=== PATIENT | female | born 1945 | race African-American/Black ===

== ENCOUNTER 2017-10-10 21:22 | Emergency (ER) | payer MEDICARE, OTHER ==
[~2017-10-10] VITALS: Ht 170.2 cm; Wt 73.5 kg
[~2017-10-10 21:22] MED LIST: AMIT50 PO; CYCL5TAB PO; FURO1TAB93 PO; OMEP40CA2 PO; SIMV40 PO; SITA100 PO; SYNT25TA PO; TRAM50TA PO
[2017-10-10 21:35] VITALS: BP 98/57; PULSE 83; RESP 18; TEMP 97.3; O2SAT 96
[2017-10-10] MEDS ORDERED: SODIUM CHLOR 0.9% 1000 ML INJ 1,000 ML IV ONE (22:00)
--- NOTE | 2017-10-10 22:04 | PD ---
HPI Chief Complaint: Medical Clearance Time Seen by Provider: 21:49 Travel History International Travel<30 days: No Contact w/Intl Traveler<30days: No Traveled to known affect area: No History of Present Illness HPI 72 y/o female presents with her daughter with concern that since August 12 she has had a change where she will not eat or talk and it is gotten to the point where she can get her to eat or drink anything over the past couple of days. She states she has not heard her mother say any coherent word since August 12. She states she used to be able to give her liquids and pured food but now she cannot get her anything other than a couple sips in the morning. The patient will not talk with me so history is obtained from the daughter. The daughter states that she has not been able to get an to the patient's primary care physician. History is significantly limited. PFSH Past Medical History Asthma: No Autoimmune Disease: No Heart Rhythm Problems: No High Cholesterol: Yes Chest Pain: No Congestive Heart Failure: No COPD: No Cerebrovascular Accident: Yes (TIA DECEMBER 2015) Diabetes: Yes Patient Takes Glucophage: Yes Diminished Hearing: No Diverticulitis: Yes GERD: No Glaucoma: No Headaches: Yes Hepatitis: No Hiatal Hernia: No Hypertension: Yes Kidney Stones: No Musculoskeletal: Yes (OSTEOPOROSIS) Myocardial Infarction: No Renal Failure: No Seizures: Yes Sleep Apnea: No Thyroid Disease: Yes Ulcer: No Past Surgical History Abdominal Surgery: No AICD: No Appendectomy: Yes Cardiac Surgery: No Cholecystectomy: Yes Ear Surgery: No Endocrine Surgery: No Eye Surgery: No Genitourinary Surgery: No Gynecologic Surgery: Yes Hysterectomy: Yes Neurologic Surgery: Yes Oral Surgery: No Pacemaker: No Thoracic Surgery: No Other Surgery: Yes Social History Alcohol Use: No Tobacco Use: No Substance Use: No Allergies-Medications (Allergen,Severity, Reaction): Coded Allergies: No Known Allergies (Verified Adverse Reaction, Unknown, 10/10/17) Reported Meds & Prescriptions Reported Meds & Active Scripts Active Reported Trazodone (Trazodone HCl) 150 Mg Tablet 150 Mg PO HS Simvastatin 40 Mg Tab 40 Mg PO HS Divalproex ER (Divalproex Sodium) 500 Mg Tab 500 Mg PO BID Ibuprofen 600 Mg Tab 600 Mg PO Q6H PRN Metformin (Metformin HCl) 500 Mg Tab 500 Mg PO BIDPC Metoprolol Tartrate 25 Mg Tab 25 Mg PO BID Aspirin 81 Mg Chew 81 Mg CHEW DAILY Januvia (Sitagliptin Phosphate) 100 Mg Tab 100 Mg PO DAILY Omeprazole 40 Mg Cap 40 Mg DAILY Review of Systems Except as stated in HPI: all other systems reviewed are Neg Physical Exam Narrative GENERAL: 72 y/o female in no apparent distress SKIN: Focused skin assessment warm/dry. HEAD: Atraumatic. Normocephalic. EYES: Pupils pinpoint. No scleral icterus. No injection or drainage. ENT: No nasal bleeding or discharge. Mucous membranes pink and moist. NECK: Trachea midline. No JVD. CARDIOVASCULAR: Regular rate and rhythm. RESPIRATORY: No accessory muscle use. Clear to auscultation. Breath sounds equal bilaterally. GASTROINTESTINAL: Abdomen soft, nondistended. MUSCULOSKELETAL: No obvious deformities. No clubbing. No cyanosis. No edema. NEUROLOGICAL: Awake. moves extremities, non verbal Data Data Last Documented VS Vital Signs Date Time Temp Pulse Resp B/P (MAP) Pulse Ox O2 Delivery O2 Flow Rate FiO2 10/11/17 00:46 10/11/17 00:00 77 18 97 Room Air 10/10/17 21:35 97.3 Orders Orders Magnesium (Mg) (10/10/17 21:56) Phosphorus (Po4) (10/10/17 21:56) Complete Blood Count With Diff (10/10/17 21:56) Comprehensive Metabolic Panel (10/10/17 21:56) Urinalysis - C+S If Indicated (10/10/17 21:56) Act Partial Throm Time (Ptt) (10/10/17 21:56) Prothrombin Time / Inr (Pt) (10/10/17 21:56) Ct Brain W/O Iv Contrast(Rout) (10/10/17 ) Chest, Single Ap (10/10/17 ) Electrocardiogram (10/10/17 ) Iv Access Insert/Monitor (10/10/17 21:56) Ecg Monitoring (10/10/17 21:56) Oximetry (10/10/17 21:56) Sodium Chlor 0.9% 1000 Ml Inj (Ns 1000 M (10/10/17 22:00) Oral Rehydration (10/11/17 00:01) Ed Discharge Order (10/11/17 00:09) Labs Laboratory Tests Test 10/10/17 22:51 10/10/17 23:30 White Blood Count 4.1 TH/MM3 Red Blood Count 4.39 MIL/MM3 Hemoglobin 12.8 GM/DL Hematocrit 38.2 % Mean Corpuscular Volume 87.0 FL Mean Corpuscular Hemoglobin 29.2 PG Mean Corpuscular Hemoglobin Concent 33.6 % Red Cell Distribution Width 17.9 % Platelet Count 203 TH/MM3 Mean Platelet Volume 7.9 FL Neutrophils (%) (Auto) 52.7 % Lymphocytes (%) (Auto) 39.6 % Monocytes (%) (Auto) 6.1 % Eosinophils (%) (Auto) 1.2 % Basophils (%) (Auto) 0.4 % Neutrophils # (Auto) 2.2 TH/MM3 Lymphocytes # (Auto) 1.6 TH/MM3 Monocytes # (Auto) 0.3 TH/MM3 Eosinophils # (Auto) 0.1 TH/MM3 Basophils # (Auto) 0.0 TH/MM3 CBC Comment DIFF FINAL Differential Comment Prothrombin Time 11.2 SEC Prothromb Time International Ratio 1.1 RATIO Activated Partial Thromboplast Time 24.0 SEC Blood Urea Nitrogen 24 MG/DL Creatinine 1.71 MG/DL Random Glucose 81 MG/DL Total Protein 7.7 GM/DL Albumin 3.8 GM/DL Calcium Level 9.4 MG/DL Phosphorus Level 3.0 MG/DL Magnesium Level 1.8 MG/DL Alkaline Phosphatase 34 U/L Aspartate Amino Transf (AST/SGOT) 17 U/L Alanine Aminotransferase (ALT/SGPT) 12 U/L Total Bilirubin 0.2 MG/DL Sodium Level 139 MEQ/L Potassium Level 3.4 MEQ/L Chloride Level 102 MEQ/L Carbon Dioxide Level 26.1 MEQ/L Anion Gap 11 MEQ/L Estimat Glomerular Filtration Rate 36 ML/MIN Urine Color YELLOW Urine Turbidity CLEAR Urine pH 6.0 Urine Specific [place] 1.022 Urine Protein TRACE mg/dL Urine Glucose (UA) NEG mg/dL Urine Ketones 10 mg/dL Urine Occult Blood NEG Urine Nitrite NEG Urine Bilirubin NEG Urine Urobilinogen 2.0 MG/DL Urine Leukocyte Esterase SMALL Urine WBC 4 /hpf Urine Squamous Epithelial Cells 1 /hpf Urine Hyaline Casts 4 /lpf Urine Mucus FEW /lpf Microscopic Urinalysis Comment CATH-CULT NOT IND MDM Medical Decision Making Medical Screen Exam Complete: Yes Emergency Medical Condition: Yes Medical Record Reviewed: Yes (pmh confirmed) Interpretation(s) CBC & BMP Diagram 10/10/17 22:51 Total Protein 7.7, Albumin 3.8, Calcium Level 9.4, Phosphorus Level 3.0, Magnesium Level 1.8, Alkaline Phosphatase 34 L, Aspartate Amino Transf (AST/SGOT ) 17, Alanine Aminotransferase (ALT/SGPT) 12, Total Bilirubin 0.2 Differential Diagnosis Acute renal failure, UTI, electrolyte abnormality Narrative Course We will check blood work, urinalysis, CT brain and reevaluate ed workup with mild increase in renal function from baseline. Patient able to tolerate oral hydration here. patient appears to have progression of her dementia Discussed with daughter and she agrees to have her follow closely with primary care physician for additional testing. Given return instructions. Diagnosis Primary Impression: Renal insufficiency Additional Impression: Decrease in appetite Patient Instructions: General Instructions Additional Instructions: return as needed, follow with primary friday Med/Other Pt SpecificInfo: No Change to Meds Disposition: 01 DISCHARGE HOME Condition: Stable Lorrie Marroquin MD Oct 10, 2017 22:04
[2017-10-10 22:19] VITALS: BP 95/53; PULSE 82; RESP 18; O2SAT 98
[2017-10-10] MEDS ORDERED: SIMV40TA PO (22:22)
[2017-10-10] MEDS ORDERED: SITA1TAB2 PO (22:22)
[2017-10-10] MEDS ORDERED: OMEP40CA2 (22:22)
[2017-10-10] MEDS ORDERED: METF500T PO (22:22)
[2017-10-10] MEDS ORDERED: TRAZ1TAB14 PO (22:22)
[2017-10-10] MEDS ORDERED: METO25TA3 PO (22:22)
[2017-10-10] MEDS ORDERED: IBUP-232 PO (22:22)
[2017-10-10] MEDS ORDERED: DIVA500T3 PO (22:22)
[2017-10-10] MEDS ORDERED: ASPI-516 CHEW (22:22)
--- NOTE | 2017-10-10 23:03 | RADRPT ---
EXAM DATE/TIME: 10/10/2017 22:17 [facility] COMPARISON: No previous studies available for comparison. INDICATIONS : Shortness of breath and palpitations. MEDICAL HISTORY : None. SURGICAL HISTORY : None. ENCOUNTER: Initial ACUITY: 1 day PAIN SCORE: Non-responsive. LOCATION: chest FINDINGS: A single view of the chest demonstrates the lungs to be symmetrically aerated without evidence of mas s, infiltrate or effusion. The cardiomediastinal contours are unremarkable. Osseous structures are intact. CONCLUSION: The lungs are clear. Niko Butler MD on October 10, 2017 at 23:02 Board Certified Radiologist. This report was verified electronically.
[2017-10-10 23:18] LABS: AUTOMATED NEUTROPHIL # 2.2 TH/MM3 (1.8-7.7); BASOPHIL % 0.4 % (0.0-2.0); EOSINOPHIL # 0.1 TH/MM3 (0-0.4); EOSINOPHIL % 1.2 % (0.0-4.0); HEMATOCRIT 38.2 % (35.0-46.0); HEMOGLOBIN 12.8 GM/DL (11.6-15.3); LYMPH % 39.6 % (9.0-44.0); LYMPHOCYTE # 1.6 TH/MM3 (1.0-4.8); MEAN CORPUSCULAR HEMOGLOBIN 29.2 PG (27.0-34.0); MEAN CORPUSCULAR HGB CONC 33.6 % (32.0-36.0); MEAN PLATELET VOLUME 7.9 FL (7.0-11.0); MONO % 6.1 % (0.0-8.0); MONOCYTE # 0.3 TH/MM3 (0-0.9); NEUT % 52.7 % (16.0-70.0); PLATELET COUNT 203 TH/MM3 (150-450); RED BLOOD COUNT 4.39 MIL/MM3 (4.00-5.30); RED CELL DISTRIBUTION WIDTH 17.9 % (11.6-17.2); WHITE BLOOD COUNT 4.1 TH/MM3 (4.0-11.0)
[2017-10-10 23:22] LABS: ALBUMIN 3.8 GM/DL (3.4-5.0); ALT (GPT) 12 U/L (10-53); AST (GOT) 17 U/L (15-37); BICARBONATE 26.1 MEQ/L (21.0-32.0); BLOOD UREA NITROGEN 24 MG/DL (7-18); CALCIUM 9.4 MG/DL (8.5-10.1); CHLORIDE 102 MEQ/L (98-107); CREATININE 1.71 MG/DL (0.50-1.00); GLOMERULAR FILTRATION RATE 36 ML/MIN (>89); GLUCOSE,RANDOM 81 MG/DL (74-106); MAGNESIUM 1.8 MG/DL (1.5-2.5); SODIUM (NA) 139 MEQ/L (136-145)
[2017-10-10 23:24] LABS: ALKALINE PHOSPHATASE 34 U/L (45-117); TOTAL BILIRUBIN ADULT 0.2 MG/DL (0.2-1.0); TOTAL PROTEIN 7.7 GM/DL (6.4-8.2)
[2017-10-10 23:32] LABS: INTERNATIONAL NORMALIZED RATIO 1.1 RATIO; PROTHROMBIN TIME - PATIENT 11.2 SEC (9.8-11.6)
--- NOTE | 2017-10-10 23:42 | RADRPT ---
EXAM DATE/TIME: 10/10/2017 23:01 [facility] COMPARISON: CT BRAIN W/O CONTRAST, March 06, 2016, 17:00. INDICATIONS : Altered mental status. RADIATION DOSE: 52.13 CTDIvol (mGy) ; Patient motion MEDICAL HISTORY : Hypertension. Seizures. Diverticulitis.TIA. Diabetes. SURGICAL HISTORY : Appendectomy. Cholecystectomy.Hysterectomy.Lumbar surgery. Cervical spine surgery. ENCOUNTER: Initial ACUITY: 1 day PAIN SCALE: 0/10 LOCATION: cranial TECHNIQUE: Multiple contiguous axial images were obtained of the head. Using automated exposure control and adj ustment of the mA and/or kV according to patient size, radiation dose was kept as low as reasonably a chievable to obtain optimal diagnostic quality images. DICOM format image data is available electro nically for review and comparison. FINDINGS: CEREBRUM: The ventricles are normal for age. Mild decreased attenuation in the periventricular white matter is similar in appearance to prior CT in 2016. No evidence of midline shift, mass lesion, hemorrhage or acute infarction. No extra-axial fluid collections are seen. POSTERIOR FOSSA: The cerebellum and brainstem are intact. The 4th ventricle is midline. The cerebellopontine angle i s unremarkable. EXTRACRANIAL: The visualized portion of the orbits is intact. SKULL: The calvaria is intact. No evidence of skull fracture. CONCLUSION: 1. No acute findings. 2. Age-appropriate atrophy, similar to prior 2016. Niko Butler MD on October 10, 2017 at 23:39 Board Certified Radiologist. This report was verified electronically.
[2017-10-10 23:56] LABS: BLOOD, URINE NEG (NEG); GLUCOSE,URINE NEG (NEG); HYALINE CAST, URINE 4 /lpf (RARE); KETONE, URINE 10 mg/dL (NEG); MUCUS URINE FEW /lpf (OCC); NITRITE,URINE NEG (NEG); SQUAMOUS EPITHELIAL CELL URINE 1 /hpf (0-5); URINE COLOR YELLOW (YELLW/STRAW); URINE LEUKOCYTE ESTERASE SMALL (NEG)
[2017-10-11] VITALS: BP 97/60; PULSE 77; RESP 18; O2SAT 97
[2017-10-11] LABS: BILIRUBIN, URINE NEG (NEG)
--- NOTE | 2017-10-11 08:59 | EKG ---
Date Performed: 10/10/2017 Time Performed: 22:16:00 PTAGE: 72 years EKG: Sinus rhythm NORMAL ECG PREVIOUS TRACING : 09/21/2004 01.28 DOCTOR: Carl Amin Interpretating Date/Time 10/11/2017 08:58:23
== END 2017-10-11 00:52 | disposition home or self-care (01) ==
LOC: NEPC 21:22
DX: N28.9 Disorder of kidney and ureter, unspecified (principal); R63.0 Anorexia; E78.00 Pure hypercholesterolemia, unspecified; E11.9 Type 2 diabetes mellitus without complications; I10 Essential (primary) hypertension; Z86.73 Personal history of transient ischemic attack (TIA), and cerebral infarction without residual deficits
CPT/HCPCS: 70450; 71045; 80053; 81001; 83735; 84100; 85025; 85610; 85730; 93005; 96360; 99285; J7030